=== PATIENT | female | born 2005 | race Caucasian/White ===

== ENCOUNTER 2023-09-18 12:09 | Outpatient (RCR) | payer SELFPAY | END 2023-09-18 23:59 | disposition home or self-care (01) | LOC: RPT 12:09 | PROVIDERS: ATTENDING PHYSICIAN Nurse Practitioner Family | DX: N31.9 Neuromuscular dysfunction of bladder, unspecified (principal); G37.81 Myelin oligodendrocyte glycoprotein antibody disease; M62.89 Other specified disorders of muscle; N39.41 Urge incontinence; Z73.6 Limitation of activities due to disability | CPT/HCPCS: 97112; 97140; 97163; 97530 ==

== ENCOUNTER 2023-10-23 12:59 | Outpatient (RCR) | payer SELFPAY | END 2023-10-23 23:59 | disposition home or self-care (01) | LOC: RPT 12:59 | PROVIDERS: ATTENDING PHYSICIAN Nurse Practitioner Family | DX: N31.9 Neuromuscular dysfunction of bladder, unspecified (principal); G37.81 Myelin oligodendrocyte glycoprotein antibody disease; M62.89 Other specified disorders of muscle; N39.41 Urge incontinence; Z73.6 Limitation of activities due to disability | CPT/HCPCS: 97014; 97112; 97140; 97530 ==

== ENCOUNTER 2023-12-04 13:13 | Outpatient (RCR) | payer MEDICAID, SELFPAY | END 2023-12-04 23:59 | disposition home or self-care (01) | LOC: RPT 13:13 | PROVIDERS: ATTENDING PHYSICIAN Nurse Practitioner Family | DX: N31.9 Neuromuscular dysfunction of bladder, unspecified (principal); G37.81 Myelin oligodendrocyte glycoprotein antibody disease; M62.89 Other specified disorders of muscle; N39.41 Urge incontinence; Z73.6 Limitation of activities due to disability | CPT/HCPCS: 97014; 97112; 97140; 97163; 97530 ==

== ENCOUNTER 2024-01-08 13:16 | Outpatient (RCR) | payer MEDICAID, SELFPAY | END 2024-01-08 23:59 | disposition home or self-care (01) | LOC: RPT 13:16 | PROVIDERS: ATTENDING PHYSICIAN Nurse Practitioner Family | DX: N31.9 Neuromuscular dysfunction of bladder, unspecified (principal); G37.81 Myelin oligodendrocyte glycoprotein antibody disease; M62.89 Other specified disorders of muscle; N39.41 Urge incontinence; Z73.6 Limitation of activities due to disability | CPT/HCPCS: 97014; 97112; 97140; 97530 ==

== ENCOUNTER 2024-02-13 13:14 | Outpatient (RCR) | payer OTHER, SELFPAY | END 2024-02-13 23:59 | disposition home or self-care (01) | LOC: RPT 13:14 | PROVIDERS: ATTENDING PHYSICIAN Nurse Practitioner Family | DX: N31.9 Neuromuscular dysfunction of bladder, unspecified (principal); G37.81 Myelin oligodendrocyte glycoprotein antibody disease; M62.89 Other specified disorders of muscle; N39.41 Urge incontinence; Z73.6 Limitation of activities due to disability | CPT/HCPCS: 97014; 97110; 97112; 97140; 97530 ==

== ENCOUNTER 2024-03-18 10:00 | Outpatient (RCR) | payer OTHER, SELFPAY | END 2024-03-18 23:59 | disposition home or self-care (01) | LOC: RPT 10:00 | PROVIDERS: ATTENDING PHYSICIAN Nurse Practitioner Family | DX: N31.9 Neuromuscular dysfunction of bladder, unspecified (principal); G37.81 Myelin oligodendrocyte glycoprotein antibody disease; M62.89 Other specified disorders of muscle; N39.41 Urge incontinence; Z73.6 Limitation of activities due to disability | CPT/HCPCS: 97014; 97110; 97112; 97530 ==

== ENCOUNTER 2024-04-08 10:04 | Outpatient (RCR) | payer OTHER, MEDICAID, SELFPAY | END 2024-04-08 23:59 | disposition home or self-care (01) | LOC: RPT 10:04 | PROVIDERS: ATTENDING PHYSICIAN Nurse Practitioner Family | DX: N31.9 Neuromuscular dysfunction of bladder, unspecified (principal); G37.81 Myelin oligodendrocyte glycoprotein antibody disease; M62.89 Other specified disorders of muscle; N39.41 Urge incontinence; Z73.6 Limitation of activities due to disability | CPT/HCPCS: 97014; 97112; 97140; 97530 ==

== ENCOUNTER 2024-05-13 13:56 | Outpatient (RCR) | payer OTHER, MEDICAID, SELFPAY | END 2024-05-13 23:59 | disposition home or self-care (01) | LOC: RPT 13:56 | PROVIDERS: ATTENDING PHYSICIAN Nurse Practitioner Family | DX: N31.9 Neuromuscular dysfunction of bladder, unspecified (principal); G37.81 Myelin oligodendrocyte glycoprotein antibody disease; M62.89 Other specified disorders of muscle; N39.41 Urge incontinence; Z73.6 Limitation of activities due to disability | CPT/HCPCS: 97014; 97112; 97530 ==

== ENCOUNTER 2024-06-11 14:29 | Outpatient (RCR) | payer OTHER, MEDICAID, SELFPAY | END 2024-06-11 23:59 | disposition home or self-care (01) | LOC: RPT 14:29 | PROVIDERS: ATTENDING PHYSICIAN Nurse Practitioner Family | DX: N31.9 Neuromuscular dysfunction of bladder, unspecified (principal); G37.81 Myelin oligodendrocyte glycoprotein antibody disease; M62.89 Other specified disorders of muscle; N39.41 Urge incontinence; Z73.6 Limitation of activities due to disability | CPT/HCPCS: 97014; 97112; 97140; 97530 ==

== ENCOUNTER 2024-07-22 14:14 | Outpatient (RCR) | payer OTHER, MEDICAID, SELFPAY | END 2024-07-22 23:59 | disposition home or self-care (01) | LOC: RPT 14:14 | PROVIDERS: ATTENDING PHYSICIAN Nurse Practitioner Family | DX: N31.9 Neuromuscular dysfunction of bladder, unspecified (principal); G37.81 Myelin oligodendrocyte glycoprotein antibody disease; M62.89 Other specified disorders of muscle; N39.41 Urge incontinence; Z73.6 Limitation of activities due to disability | CPT/HCPCS: 97014; 97112; 97530 ==

== ENCOUNTER 2024-08-29 13:00 | Outpatient (RCR) | payer OTHER, SELFPAY | END 2024-08-29 23:59 | disposition home or self-care (01) | LOC: RPT 13:00 | PROVIDERS: ATTENDING PHYSICIAN Nurse Practitioner Family | DX: N31.9 Neuromuscular dysfunction of bladder, unspecified (principal); G37.81 Myelin oligodendrocyte glycoprotein antibody disease; M62.89 Other specified disorders of muscle; N39.41 Urge incontinence; Z73.6 Limitation of activities due to disability | CPT/HCPCS: 97530 ==